=== PATIENT | male | born 1995 | race Caucasian/White ===

== ENCOUNTER 2017-07-07 13:04 | Emergency (ER) | payer BC | END 2017-07-07 14:10 | disposition home or self-care (01) | LOC: D.ER 13:04 | DX: S62.336A Displaced fracture of neck of fifth metacarpal bone, right hand, initial encounter for closed fracture (principal); W22.8XXA Striking against or struck by other objects, initial encounter; F17.200 Nicotine dependence, unspecified, uncomplicated ==

== ENCOUNTER 2017-07-22 09:32 | Emergency (ER) | payer BC | END 2017-07-22 11:39 | disposition home or self-care (01) | LOC: D.ER 09:32 | DX: L23.7 Allergic contact dermatitis due to plants, except food (principal) ==

== ENCOUNTER 2017-08-17 11:11 | Emergency (ER) | payer BC | END 2017-08-17 12:09 | disposition home or self-care (01) | LOC: D.ER 11:11 | DX: L23.7 Allergic contact dermatitis due to plants, except food (principal); T63.301A Toxic effect of unspecified spider venom, accidental (unintentional), initial encounter; Y92.019 Unspecified place in single-family (private) house as the place of occurrence of the external cause ==

== ENCOUNTER 2019-05-27 10:47 | Emergency (ER) | payer BC ==
[2019-05-27 10:52] VITALS: BP 123/73; Wt 50.0 kg
== END 2019-05-27 13:57 | disposition left against medical advice (07) ==
LOC: D.ER 10:47
DX: M54.9 Dorsalgia, unspecified (principal)

== ENCOUNTER 2019-09-12 17:55 | Emergency (ER) | payer BC ==
[~2019-09-12] VITALS: Ht 175.3 cm; Wt 95.5 kg
[2019-09-12 18:02] VITALS: Ht 175.3 cm; Wt 95.5 kg
[2019-09-12] MEDS ORDERED: KLONOPIN1 MG PO (18:05)
[2019-09-12] MEDS ORDERED: VOLTAREN75 MG PO (19:43)
[2019-09-12 20:42] VITALS: BP 143/93
== END 2019-09-12 20:42 | disposition home or self-care (01) ==
LOC: D.ER 17:55
DX: M25.561 Pain in right knee (principal)